=== PATIENT | male | born 1965 | race Caucasian/White ===

== ENCOUNTER 2019-12-30 16:38 | Emergency (ER) | payer OTHER ==
[~2019-12-30] VITALS: Ht 177.8 cm; Wt 97.5 kg
--- OUTSIDE RECORDS SUMMARY | ~2019-12-30 | XMS | Encounter Summary ---
Demographics + + + | Address | [address] | | | [place] [address] | + + + | Home Phone | | + + + | Preferred Language | Unknown | + + + | Marital Status | Single | + + + | Episcopalian Affiliation | Unknown | + + + | Race | Unknown | + + + | Ethnic Group | Not or | + + + Author + + + | Author | [facility] | + + + | Organization | [facility] | + + + | Address | Unknown | + + + | Phone | Unavailable | + + + Support + + + + + | Name | Relationship | Address | Phone | + + + + + | Tiffany Bender | ECON | [address] | | | | | [place] | | | | | [address] | | + + + + + Care Team Providers + +------+ + | Care Compensation And Benefits Manager Name | Role | Phone | + +------+ + PCP | Unavailable | + +------+ + Encounter Details +--------+ + + + + | Date | Type | Department | Care Team | Description | +--------+ + + + + | 10/10/ | Procedure - | Digestive Health | Record, Operation | Operative Report | | 1997 | | [facility] [address] | | | | | Transcribed | [address] | | | | | | Mailcode: [facility] | | | | | | for Health and | | | | | | Healing, [address] | | | | | | [place], [place] | | | | | | [address] | | | | | | [phone] | | | +--------+ + + + + Social History + +-------+ +--------+------+ | Tobacco Use | Types | Packs/Day | Years | Date | | | | | Used | | + +-------+ +--------+------+ | Never Assessed | | | | | + +-------+ +--------+------+ + + + | Sex Assigned at | Date Recorded | | | | + + + | Not on file | | + + + + + + + | Job Start Date | Occupation | Industry | + + + + | Not on file | Not on file | Not on file | + + + + + + + + | Travel History | Travel Start | Travel End | + + + + + + | No recent travel history available. | + + documented as of this encounter Plan of Treatment Not on filedocumented as of this encounter Procedures + +--------+ + + + | Procedure Name | Priori | Date/Time | Associated Diagnosis | Comments | | | ty | | | | + +--------+ + + + | OPERATION RECORD | | 10/10/1997 | | Results for this | | | | 12:00 AM | | procedure are in the | | | | PST | | results section. | + +--------+ + + + documented in this encounter Results OPERATION RECORD (10/10/1997 12:00 AM PST) + + | Procedure Note | + + | 10/10/1997 12:[address] [facility] | | [facility] | | [address], [place] [address] | | [facility] | | | | OPERATION RECORD | | | | Med Rec No.: [id number] Date: 10/10/97 | | | | Name: Napoleon Ankit Busch | | | | ATTENDING SURGEON: Tripp Mckee M.D. | | Professor, Surgery/Urology | | | | AUTO SERVICE ADVISOR(S): Cleveland Barrett M.D. | | Resident, Urology | | | | POSTOPERATIVE DIAGNOSIS(ES): Astheno-oligospermia. | | | | OPERATION(S) PERFORMED: Left varicocele ligation. | | | | SPECIMEN(S) REMOVED: None. | | | | ANESTHESIA: Local with sedation. | | | | ESTIMATED BLOOD LOSS: Scant. | | | | DRAINS: None. | | | | COMPLICATIONS: None. | | | | CONDITION: Stable to Postanesthesia Care Unit. | | | | INDICATIONS: Ankit Bender is a 32-year-old male who has | | undergone infertility analysis demonstrating | | low sperm motility and | | count. On physical examination, he has a left varicocele. He is brought to | | the Operating Room for varicocele ligation. | | | | FINDINGS: The left cord was isolated and there were no | | perforators identified. The veins of the | | cord were ligated with | | hemoclips. The spermatic artery was preserved. | | | | PROCEDURE: The patient was properly identified, brought | | to the Operating Room and placed on the | | table in the supine | | position. After application of an ilioinguinal nerve block and a spermatic | | cord block with a mixture of 1% lidocaine and 0.25% Marcaine as well as | | additional local anesthetic into the region of the incision, a 2 cm oblique | | incision was made overlying the cord at approximately the level of the | | external inguinal ring. | | | | Bovie cautery was used to divide the underlying soft tissues. The cord was | | identified on top of the aponeurosis of the external abdominal oblique. It | | was grasped with an Allis forceps and brought out through the incision. The | | vas deferens was isolated from the cord and protected. The cord was then | | supported on a tongue blade through a Yeimi drain and its tunica coats | | were opened with Bovie cautery. The Doppler was used to identify the | | location of the spermatic artery. Lymphatic channels were preserved and | | venous channels were clipped with small hemoclips and divided. Lymphatics | | and the spermatic artery were preserved. The cord was then allowed to drop | | back in through the incision to its normal position. | | | | The wound was closed with a Biosyn subcuticular suture. It was then dressed | | with a gauze pad and paper tape. The patient tolerated the procedure with | | no apparent complications. The sponge and needle counts were correct. He | | returned to the Postanesthesia Care Unit in good condition. | | | | Dr. Tripp Mckee was present in the Operating Room and actively participated | | in the entire procedure. | | | | | | Cleveland Barrett M.D. | | Resident, Urology | | Tripp Mckee M.D. | | Professor, Surgery/Urology | | | | SHAMEKA/paul | | | | P | | | | cc: | | | + + documented in this encounter Visit Diagnoses Not on filedocumented in this encounter"
--- OUTSIDE RECORDS SUMMARY | ~2019-12-30 | XMS | Encounter Summary ---
Demographics + + + | Address | [address] | | | [place] [address] | + + + | Home Phone | | + + + | Preferred Language | Unknown | + + + | Marital Status | | + + + | Protestant Affiliation | Unknown | + + + | Race | Unknown | + + + | Ethnic Group | Unknown | + + + Author + + + | Author | [facility] | | | and [place] | + + + | Organization | [facility] | | | and [place] | + + + | Address | Unknown | + + + | Phone | Unavailable | + + + Care Team Providers + +------+ + | Care Fiberglass Fabricator Name | Role | Phone | + +------+ + PCP | Unavailable | + +------+ + Encounter Details +--------+ + + + + | Date | Type | Department | Care Team | Description | +--------+ + + + + | 05/19/ | Hospital | [facility] | Krystian Shultz, | | | 2008 | Encounter | MED CTR SLEEP | [place] [address] | | | | | [place] [address] | [place] | | | | | [place] | [address] | | | | | [address] | | | | | | [phone] | | | +--------+ + + + [...] Not on filedocumented as of this encounter Visit Diagnoses Not on filedocumented in this encounter"
--- OUTSIDE RECORDS SUMMARY | ~2019-12-30 | XMS | Clinical Summary ---
Demographics + + + | Address | [address] | | | [place] [address] | + + + | Home Phone | | + + + | Preferred Language | Unknown | + + + | Marital Status | Single | + + + | Anglican Affiliation | Unknown | + + + | Race | Unknown | + + + | Ethnic Group | Not or | + + + Author + + + | Organization | Unknown | + + + | Address | Unknown | + + + | Phone | Unavailable | + + + Support + + + + + | Name | Relationship | Address | Phone | + + + + + | Tiffany Bender | ECON | [address] | | | | | [place] | | | | | [address] | | + + + + + Care Team Providers + +------+ + | Care Anatomy Professor Name | Role | Phone | + +------+ + PCP | Unavailable | + +------+ + Source Comments RITU is fully live on both [facility] and [facility] InPatient.[facility] Allergies Not on File Medications Not on file Active Problems Not on file Social History + +-------+ +--------+------+ | Tobacco [...] recent travel history available. | + + Last Filed Vital Signs Not on file Plan of Treatment + + + + + | Health Maintenance | Due Date | Last Done | Comments | + + + + + | Influenza (Flu) | | | | | vaccination (#1) | 9 | | | + + + + + | Pneumococcal | Aged Out | | No longer eligible | | vaccination | | | based on patient's | | | | | age to complete this | | | | | topic | + + + + + Results Not on filefrom Last 3 Months"
--- OUTSIDE RECORDS SUMMARY | ~2019-12-30 | XMS | Clinical Summary ---
Demographics + + + | Address | [address] | | | [place] [address] | + + + | Home Phone | | + + + | Preferred Language | Unknown | + + + | Marital Status | | + + + | Anabaptist Affiliation | Unknown | + + + | Race | Unknown | + + + | Ethnic Group | Unknown | + + + Author + + + | Author | [facility] | | | and [place] | + + + | Organization | [facility] | | | and [place] | + + + | Address | Unknown | + + + | Phone | Unavailable | + + + Care Team Providers + +------+ + | Care Hotbed Operator Name | Role | Phone | + +------+ + | Rocky Mcdaniels MD | PCP | | + +------+ + Allergies Not on File Medications Not on [...] | + + + + + | Vaccine: | | | | | Dtap/Tdap/Td (1 - | 8 | | | | Tdap) | | | | + + + + + | Vaccine: Zoster (1 | | | | | of 2) | 7 | | | + + + + + | Vaccine: Influenza | | | | | (Season Ended) | 0 | | | + + + + + Results Not on filefrom Last 3 Months Insurance + +--------+ +--------+ +---------+------+ | Payer | Benefi | Subscriber | Effect | Phone | Address | Type | | | t Plan | ID | patito | | | | | | / | | Dates | | | | | | Group | | | | | | + +--------+ +--------+ +---------+------+ | [facility] | PHP | [id number] | 07/31/19 | [phone] | | PPO | | PLAN | PEBB | | 18-Pre | 5 | | | | | PROV | | sent | | | | | | CHOICE | | | | | | + +--------+ +--------+ +---------+------+ + +--------+ +--------+ + + | Guarantor Name | Accoun | Relation to | Date | Phone | Billing Address | | | t Type | Patient | of | | | | | | | | | | + +--------+ +--------+ + + | Ankit Bender | Person | Self | [birth year] | [address] | | | al/Fam | | 1965 | [phone] | [place] [address] | | | w[place]m | | | 0 (Home) | | | | | | | [phone] | | | | | | | 0 (Work) | | + +--------+ +--------+ + +"
--- OUTSIDE RECORDS SUMMARY | ~2019-12-30 | XMS | Clinical Summary ---
Demographics + + + | Address | [address] | | | [place] [address] | + + + | Home Phone | | + + + | Preferred Language | Unknown | + + + | Marital Status | Single | + + + | Religion Affiliation | Unknown | + + + [...] [place] | | | | | [address] | | + + + + + Care Team Providers + +------+ + | Care Multiple Wire Sawyer Name | Role | Phone | + +------+ + PCP | Unavailable | + +------+ + Source Comments RITU is fully live on both [facility] Ambulatory and [facility] InPatient.[facility] Allergies Not on File Medications Not [...]
--- OUTSIDE RECORDS SUMMARY | ~2019-12-30 | XMS | Encounter Summary ---
Demographics + + + | Address | [address] | | | [place] [address] | + + + | Home Phone | | + + + | Preferred Language | Unknown | + + + | Marital Status | | + + + | Mormonism Affiliation | Unknown | + + + | Race | Unknown | + + + | Ethnic Group | Unknown | + + + Author + + + | Author | [facility] | | | and [place] | + + + | Organization | [facility] | | | and [place] | + + + | Address | Unknown | + + + | Phone | Unavailable | + + + Care Team Providers + +------+ + | Care Fishing Game Warden Name | Role | Phone | + +------+ + PCP | Unavailable | + +------+ + Encounter Details +--------+ + + + + | Date | Type | Department | Care Team | Description | +--------+ + + + + | 05/19/ | Hospital | [facility] | Krystian Shultz, | | | 2008 | Encounter | MED CTR SLEEP | [place] [address] | | | | | [place] [address] | [place] | | | | | [place] | [address] | | | | | [address] | | | | | | [phone] | | | +--------+ + + + [...]
--- OUTSIDE RECORDS SUMMARY | ~2019-12-30 | XMS | Clinical Summary ---
Demographics + + + | Address | [address] | | | [place] [address] | + + + | Home Phone | | + + + | Preferred Language | Unknown | + + + | Marital Status | | + + + | Taoist Affiliation | Unknown | + + + | Race | Unknown | + + + | Ethnic Group | Unknown | + + + Author + + + | Author | [facility] | | | and [place] | + + + | Organization | [facility] | | | and [place] | + + + | Address | Unknown | + + + | Phone | Unavailable | + + + Care Team Providers + +------+ + | Care Iron Worker Apprentice Name | Role | Phone | + [...] +---------+------+ | [facility] | PHP | [phone] | 07/31/19 | [phone] | | PPO | | PLAN | [...] | Self | [birth year] | [address] | | | al/Fam | | 1965 | [phone] | [place] [address] | | | willem | | | 0 (Home) | | | | | | | [phone] | | | | | | | 0 (Work) | | + +--------+ +--------+ + +"
--- OUTSIDE RECORDS SUMMARY | ~2019-12-30 | XMS | Encounter Summary ---
Demographics + + + | Address | [address] | | | [place] [address] | + + + | Home Phone | | + + + | Preferred Language | Unknown | + + + | Marital Status | Single | + + + | Gnosticist Affiliation | Unknown | + + + | Race | Unknown | + + + | Ethnic Group | Not or | + + + Author + + + | Author | [facility] | + + + | Organization | [facility] | + + + | Address | Unknown | + + + | Phone | Unavailable | + + + Support + + + + + | Name | Relationship | Address | Phone | + + + + + | Tiffany Bender | ECON | [address] | | | | | [place] | | | | | [address] | | + + + + + Care Team Providers + +------+ + | Care Import Coordination And Production Head Name | Role | Phone | + +------+ + PCP | Unavailable | + +------+ + Encounter Details +--------+ + + + + | Date | Type | Department | Care Team | Description | +--------+ + + + + | 10/10/ | Procedure - | Digestive Health | Record, Operation | Operative Report | | 1997 | | [facility] [address] | | | | | Transcribed | [address] | | | | | | Mailcode: [facility] | | | | | | for Health and | | | | | | Healing, [address] | | | | | | [place], [place] | | | | | | [address] | | | | | | [phone] | | | +--------+ + + + [...] + + | 10/10/1997 12:00 AM [facility] | | [facility] | | [address], [place] [address] | | [facility] | | | | OPERATION RECORD | | | | Med Rec No.: [id number] Date: 10/10/97 | | | | Name: Napoleon Ankit Busch | | | | ATTENDING SURGEON: Tripp Mckee M.D. | | Professor, Surgery/Urology | | | | BOUFFANT CURTAIN MACHINE TENDER(S): Cleveland Barrett M.D. | | Resident, Urology [...]
[2019-12-30] MEDS ORDERED: MONTELUKAST SOD10 MG PO (16:52)
[2019-12-30] MEDS ORDERED: TIZANIDINE HCL2 MG PO (16:53)
[2019-12-30] MEDS ORDERED: HYOSCYAMINE0.125 M2 PO (16:53)
[2019-12-30] MEDS ORDERED: BUPROPION XL300 MG PO (16:53)
[2019-12-30] MEDS ORDERED: FLUTICASONE PRO16 GM NAS (16:53)
[2019-12-30] MEDS ORDERED: DICYCLOMINE HCL10 MG PO (16:55)
[2019-12-30] MEDS ORDERED: ANDROGEL1.25 GM TD (16:56)
[2019-12-30] MEDS ORDERED: NORVASC5 MG PO (18:12)
== END 2019-12-30 18:23 | disposition home or self-care (01) ==
LOC: ED 16:38
DX: I12.9 Hypertensive chronic kidney disease with stage 1 through stage 4 chronic kidney disease, or unspecified chronic kidney disease (principal); N18.9 Chronic kidney disease, unspecified; Z79.899 Other long term (current) drug therapy
CPT/HCPCS: 80053; 85025; 99283

== ENCOUNTER 2020-11-11 17:26 | Emergency (ER) | payer OTHER ==
[~2020-11-11] VITALS: Ht 177.8 cm; Wt 104.3 kg
--- NOTE | ~2020-11-11 | EKG ---
[facility] [address] [place], [place] [address] Draft EK completed, results pending confirmation PATIENT NAME: MANDYCOLETTE Electrocardiogram DATE OF : 69 PHYSICIAN: PRELIMINARY REPORT #: [id number] REPORT IS CONFIDENTIAL AND NOT TO BE RELEASED WITHOUT AUTHORIZATION
[~2020-11-11 17:26] MED LIST: ANDROGEL1.25 GM TD; BUPROPION XL300 MG PO; DICYCLOMINE HCL10 MG PO; FLUTICASONE PRO16 GM NAS; HYOSCYAMINE0.125 M2 PO; MONTELUKAST SOD10 MG PO; NORVASC5 MG PO; TIZANIDINE HCL2 MG PO
[2020-11-11] MEDS ORDERED: FUROSEMIDE20 MG PO (17:43)
[2020-11-12] MEDS ORDERED: LEVOFLOXACIN500 MG PO (00:02)
--- NOTE | 2020-11-13 13:16 | EKG ---
[facility] [address] [facility] [place], [place] [address] Signed Normal sinus rhythm Normal ECG When compared with ECG of 11-NOV-2020 23:33, (Unconfirmed) No significant change was found Confirmed by MAE SÁNCHEZ DO ([id number]) on 11/13/2020 1:16:13 PM Electronically Signed By: MAE SÁNCHEZ DO 11/13/20 1316 PATIENT NAME: MANDYCOLETTE MARY ELLEN Electrocardiogram DATE OF : 69 PHYSICIAN: MAE SÁNCHEZ DO REPORT #: [id number] REPORT IS CONFIDENTIAL AND NOT TO BE RELEASED WITHOUT AUTHORIZATION
== END 2020-11-12 00:17 | disposition home or self-care (01) ==
LOC: ED 17:26
DX: R50.9 Fever, unspecified (principal); N18.9 Chronic kidney disease, unspecified; Z94.0 Kidney transplant status; C90.00 Multiple myeloma not having achieved remission; E87.5 Hyperkalemia; Z92.21 Personal history of antineoplastic chemotherapy; Z20.822 Contact with and (suspected) exposure to COVID-19
CPT/HCPCS: 71045; 80053; 81001; 83605; 85025; 93005; 93010; 96365; 99284-25; C9803; J1956; J7030; U0003

== ENCOUNTER 2021-01-21 19:10 | Emergency (ER) | payer OTHER ==
[~2021-01-21] VITALS: Ht 177.8 cm; Wt 102.1 kg
[~2021-01-21 19:10] MED LIST changes: +FUROSEMIDE20 MG PO; +LEVOFLOXACIN500 MG PO
--- OUTSIDE RECORDS SUMMARY | 2021-01-21 19:12 | XMS ---
PreManage Notification: COLETTE GALVAN Security Perioperative Manager Events No recent Security Events currently on file CRITERIA MET - [facility] CARE PROVIDERS There are no care providers on record at this time. Daryl has no Care Guidelines for this patient. Tyrese VISIT COUNT (12 MO.) 2 [facility] TOTAL 2 NOTE: Visits indicate total known visits. 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
[2021-01-21] MEDS ORDERED: ACYCLOVIR400 MG PO (19:29)
[2021-01-21] MEDS ORDERED: DEXAMETHASONE4 MG PO (19:29)
[2021-01-21] MEDS ORDERED: METOPROLOL SUCC50 MG PO (19:29)
[2021-01-21] MEDS ORDERED: DOXAZOSIN MESYLA2 MG PO (19:30)
[2021-01-21] MEDS ORDERED: REVLIMID5 MG PO (19:30)
[2021-01-21] MEDS ORDERED: PROCHLORPERAZIN10 MG PO (19:30)
[2021-01-21] MEDS ORDERED: VELCADE3.5 MG (19:31)
[2021-01-21] MEDS ORDERED: DARZALEX100 MG/5 M IV (19:32)
== END 2021-01-21 22:26 | disposition home or self-care (01) ==
LOC: ED 19:10
DX: R50.9 Fever, unspecified (principal); I12.9 Hypertensive chronic kidney disease with stage 1 through stage 4 chronic kidney disease, or unspecified chronic kidney disease; N18.9 Chronic kidney disease, unspecified; Z79.899 Other long term (current) drug therapy; Z20.822 Contact with and (suspected) exposure to COVID-19
CPT/HCPCS: 71045; 74176; 80053; 81001; 83605; 85025; 99284-25; J7030; U0003

== ENCOUNTER 2025-03-03 13:56 | Emergency (ER) | payer OTHER, MEDICARE ==
[~2025-03-03] VITALS: Ht 180.3 cm; Wt 113.1 kg
[~2025-03-03 13:56] MED LIST changes: +ACYCLOVIR400 MG PO; +ADULT ASPIRIN R81 MG PO; +ALLOPURINOL200 MG PO; +DARZALEX FASPRO15 ML SUB-Q; +DARZALEX100 MG/5 M IV; +DEXAMETHASONE4 MG PO; +DOXAZOSIN MESYLA2 MG PO; +METOPROLOL SUCC50 MG PO; +NEURONTIN300 MG PO; +PROCHLORPERAZIN10 MG PO; +REVLIMID5 MG PO; +VELCADE3.5 MG
[2025-03-03] MEDS ORDERED: TETRACAINE HCL 0.5% 4 ML BTL OU SCH (14:15)
[2025-03-03 15:11] VITALS: BP 165/83
== END 2025-03-03 15:12 | disposition home or self-care (01) ==
LOC: ED 13:56
DX: T60.3X1A Toxic effect of herbicides and fungicides, accidental (unintentional), initial encounter (principal); H10.213 Acute toxic conjunctivitis, bilateral; I12.9 Hypertensive chronic kidney disease with stage 1 through stage 4 chronic kidney disease, or unspecified chronic kidney disease; N18.9 Chronic kidney disease, unspecified; Z79.82 Long term (current) use of aspirin; Z79.899 Other long term (current) drug therapy
CPT/HCPCS: 99283